=== PATIENT | male | born 1940 | race Asian ===

== ENCOUNTER → 2019-09-29 | Outpatient (CLI) | payer MEDICARE, OTHER ==
[~2019-09-29] MED LIST: AMLO-150 PO; ATEN25TA PO; TAMS-11 PO
== END | disposition home or self-care (01) ==
LOC: CVU 07:05
PROVIDERS: ATTEND Surgery
DX: I70.1 Atherosclerosis of renal artery (principal); I77.819 Aortic ectasia, unspecified site; I73.9 Peripheral vascular disease, unspecified; I10 Essential (primary) hypertension; E11.9 Type 2 diabetes mellitus without complications; J44.9 Chronic obstructive pulmonary disease, unspecified; Z90.5 Acquired absence of kidney
CPT/HCPCS: 93975